=== PATIENT | female | born 1955 | race Caucasian/White ===

== ENCOUNTER 2017-06-11 23:13 | Observation (INO) ==
--- NOTE | 2017-06-11 23:32 | Emergency Department Note ---
Disposition Clinical Impression: Cellulitis, DM type 2 (diabetes mellitus, type 2), Hypertension Disposition: Admitted As Inpatient Condition: Good Referrals: Maikel Scott MD [Primary Care Provider] - Forms: ED Satisfaction Letter Time of Disposition: 23:46 (naila soria [facility]) Skin/Abscess/FB HPI Chief complaint: ED Skin/Abscess/Foreign Body Stated complaint: Redness and edema to bilat feet Time Seen by Provider: 06/11/17 23:20 Source: patient Mode of arrival: ambulatory Limitations: no limitations Nursing Notes Reviewed: Yes Vital Signs Reviewed: Yes HPI Narrative: Patient presents to emergency room is been having increasing swelling and edema lower extremities a home health aide came out today and noticed that the right lower extremity was red hot swollen to the knee patient said about a year ago she had similar presentation which ended up with her being hospitalized patient states that she has had a persistent cough dry hack E not staccato type but it addition she has had swelling and edema to the lower extremities redness to the right lower extremity patient now presents to the ER after being instructed by the family physician to come to the ER because of her prior history of cellulitis and peripheral edema patient states last time she had this she was hospitalized receive IV antibiotics and diuretics and resolved Pt Subjective Complaint: other (cellulitis and swelling in the legs) Onset (ago): day(s) Tetanus Up to Date: yes Location: LLE, RLE Severity: moderate Severity scale (1-10): 5 Quality: aching Consistency: constant, Worsening Improves with: other (legs elevated improves) Worsens with: other (legs down) Context: none Associated symptoms: Reports: malaise, arthralgias, myalgias. Denies: fever, chills, rigors, itching, nausea, cough, shortness of breath Treatments prior to arrival: none Home Medications Medication Instructions Recorded Confirmed Albuterol Sulfate [Albuterol 1 puff IH Q6HR PRN 06/08/15 06/11/17 Inhaler] Amitriptyline HCl 100 mg PO HS 06/08/15 06/11/17 Metformin [Glucophage] 500 mg PO BIDWM 06/08/15 06/11/17 Tiotropium [place] [Spiriva] 18 mcg IH DAILY 06/08/15 06/11/17 Metoprolol Tartrate [Lopressor] 100 mg PO BID 01/08/16 06/11/17 Allergies Allergy/AdvReac Type Severity Reaction Status Date / Time ciprofloxacin [From Cipro] AdvReac Vomiting Verified 05/28/17 18:16 All systems ED: reviewed and negative except as stated. Review of Systems: As Per HPI Constitutional: Reports: weakness. Denies: fever, chills Eyes: Denies: eye pain ENT ED: Denies: ear pain Cardiovascular: Denies: chest pain Respiratory: Denies: cough Gastrointestinal: Denies: abdominal pain Genitourinary: Denies: urgency, dysuria Musculoskeletal: Reports: other (Patient was swelling and redness). Denies: back pain Integumentary: Denies: rash, abrasion Neurological: Denies: headache Psychiatric: Denies: anxiety Endocrine: Denies: fatigue Hematological/Lymphatic: Denies: easy bleeding Allergic/Immunologic: Denies: facial swelling Past Medical History - Past Medical History Attestation: Yes The following information was validated with the patient. Source: patient, old records reviewed, nursing notes reviewed Medical history: Reports: COPD, diabetes, hypertension, migraine Surgical history: Reports: , cholecystectomy, hysterectomy Psychiatric history: Reports: anxiety, depression - Social History Smoking Status: Former smoker Smokeless Tobacco Status: No Alcohol use: Reports: none Drug use: Reports: none Physical Exam - General Limitations: no limitations General appearance: alert, in no apparent distress, anxious, obese, other ( dyspneic with activity) - Head Head exam: atraumatic, normocephalic, normal inspection - Eye Eye exam: Present: normal appearance, PERRL, EOMI - ENT ENT exam: normal exam, normal oropharynx, mucous membranes moist, normal external ear exam - Neck Neck exam: Present: normal inspection, full ROM, trachea midline - Chest Chest inspection: Present: normal inspection, symmetric chest wall rise - Respiratory Respiratory exam: Present: wheezes, prolonged expiratory phase - Cardiovascular Cardiovascular exam: Present: regular rate, normal rhythm, normal heart sounds - Abdominal Exam Abdominal exam: Present: soft, Non-Tender, normal bowel sounds. Absent: mass, pulsatile mass - Expanded Upper Extremity Exam Shoulder exam: Present: normal inspection, full ROM Arm exam: Present: normal inspection, full ROM Elbow exam: Present: normal inspection, full ROM Forearm/Wrist exam: Present: normal inspection, full ROM Hand exam: Present: normal inspection, full ROM Vascular exam: Normal: capillary refill, radial pulse - Expanded Lower Extremity Exam Hip/Pelvis exam: Present: normal inspection, full ROM Upper leg exam: Present: normal inspection, full ROM Knee exam: Present: normal inspection, full ROM Lower leg exam: Present: normal inspection, full ROM, swelling, erythema (Right lower extremity). Absent: Homans' sign Ankle exam: Present: normal inspection, full ROM, swelling, erythema Foot/toe exam: Present: normal inspection, full ROM, swelling, erythema Neurovascular/Tendon exam: Present: normal capillary refill, normal fine/light touch. Absent: motor deficit, sensory deficit, tendon deficit Gait: antalgic - Back Exam Back exam: Present: normal inspection, full ROM. Absent: muscle spasm - Neurological Exam Neurological exam: Present: alert, oriented X3, CN II-XII intact - Psychiatric Psychiatric exam: Present: normal affect, normal mood - Skin Skin exam: Present: warm, dry, intact, normal color Course Course Narrative: seen and examined patient is noted to have cellulitis of the lower extremities and significant edema to the knees bilaterally she has got a persistent cough workup was done for CHF she will be admitted services of Dr. Rodriguez for diuresis and antibiotics Vital Signs Temperature 97.8 F 06/11/17 23:15 Pulse Rate 104 06/11/17 23:15 Respiratory Rate 16 06/11/17 23:15 Blood Pressure 129/74 06/11/17 23:15 O2 Sat by Pulse Oximetry 99 06/11/17 23:15 Temperature 97.8 F 06/11/17 23:18 Pulse Rate 104 06/11/17 23:18 Respiratory Rate 16 06/11/17 23:18 Blood Pressure 129/74 06/11/17 23:18 O2 Sat by Pulse Oximetry 99 06/11/17 23:18 Oxygen Delivery Oxygen Delivery Room Air Skin/Abscess/Foreign Body - MDM Narrative Medical decision making narrative: edema - Differential Diagnosis Likely: cellulitis - Medical Records Medical records reviewed: Yes I reviewed the patient's medical records. - Lab Data Lab results reviewed: Yes I reviewed the patient's lab results. - Radiology Data Radiology results reviewed: Yes I reviewed the patient's radiology results. Critical Care Time Critical Care Time: No
[2017-06-11] MEDS ORDERED: Bumetanide 1 MG/4 ML VIAL IVP ONE (23:33)
[2017-06-11] MEDS ORDERED: Ampicillin/Sulbactam 3,000 MG in 0.9 % Sodium Chloride Mini Bag 100 ML IVPB ONE (23:33)
[2017-06-11] MEDS ORDERED: Ondansetron 4 MG/2 ML VIAL IVP ONE (23:53)
[2017-06-11 23:58] LABS: Basophils % 0.5 %; Eosinophils # 0.5 K/mcL (0.0-0.6); Eosinophils % 6.1 %; Hematocrit 45.5 % (35.3-44.9); Hemoglobin 14.9 g/dL (11.5-15.4); Immature Granulocytes % 0.3 % (0-4); Lymphocytes # 2.2 K/mcL (0.6-4.6); Mean Corpuscular HGB Conc 32.7 g/dL (31.6-35.5); Mean Corpuscular Hemoglobin 30.7 pg (28.0-33.3); Mean Corpuscular Volume 93.6 fL (83.0-100.0); Mean Platelet Volume 12.2 fL (9.4-12.4); Monocytes # 0.6 K/mcL (0.0-1.3); Monocytes % 7.3 %; Neutrophils # 4.5 K/mcL (1.6-8.9); Platelet Count 181 K/mcL (140-400); Red Blood Count 4.86 M/mcL (3.82-4.97); Red Cell Distribution Width 14.3 % (11.5-14.5); Segmented Neutrophils % 57.8 %
[2017-06-12 00:04] LABS: INR 1.1; Prothrombin Time 11.8 Seconds (9.4-12.1)
[2017-06-12 00:06] LABS: Activated Partial Thrombo Time 32.3 Seconds (26.0-36.0)
[2017-06-12 00:13] LABS: BUN/Creatinine Ratio 6 (6-26); Blood Urea Nitrogen 6 mg/dL (7-20); Calcium 9.5 mg/dL (8.6-10.8); Carbon Dioxide 27 mEq/L (19-29); Chloride 101 mEq/L (98-109); Glucose 92 mg/dL (70-99); Osmolality,Calculated 291 (280-300); Potassium 3.8 mEq/L (3.5-4.5); Sodium 142 mEq/L (136-145); eGFR For African Americans > 60 (> 60); eGFR For Non-African Americans 56 (> 60)
[2017-06-12] MEDS ORDERED: Dextrose Gel 15 GM PO PRN ×2 (00:21)
[2017-06-12] MEDS ORDERED: *HR* Dextrose 50 % in Water (Syg) 50 ML SYRINGE IVP PRN (00:21)
[2017-06-12] MEDS ORDERED: Naloxone 0.4 MG/ML INJ IVP PRN (00:21)
[2017-06-12] MEDS ORDERED: D5% in Water 1,000 ML IVC PRN (00:21)
[2017-06-12] MEDS ORDERED: *HR* OxyCODONE/APAP 5/325 TABLET PO PRN (04:56)
[2017-06-12] MEDS ORDERED: *HR* Metformin 500 MG TABLET PO SCH (08:00)
[2017-06-12] MEDS ORDERED: Bumetanide 1 MG/4 ML VIAL IVP SCH ×2 (08:00)
[2017-06-12] MEDS ORDERED: Tiotropium 18 MCG inhalation IH SCH (09:00)
[2017-06-12] MEDS: Insulin LISPRO 300 UNITS/3 ML VIAL SQ SCH ×2 (09:40→12:14)
[2017-06-12 10:52] VITALS: BP 130/85
--- NOTE | 2017-06-12 14:59 | Internal Med History&Physical ---
Date of Encounter: 06/12/17 Time of Encounter: 14:30 Assessment and Plan (1) Cellulitis Current visit: Yes Status: Acute Suspect primarily venous stasis rather than cellulitis. She was started on Unasyn in the emergency room. She wishes to be discharged home now. Will give 2 days of Septra DS because of possible mild cellulitis and dysuria complaints Qualifiers: Site of cellulitis: extremity Site of cellulitis of extremity: lower extremity Laterality: unspecified laterality Qualified Code(s): L03.119 - Cellulitis of unspecified part of limb (2) Edema Current visit: Yes Status: Acute Will start low dose Bumex. She has been on this before but does not recall the reason it was stopped. Qualifiers: Edema type: unspecified Qualified Code(s): R60.9 - Edema, unspecified Internal Medicine - H&P: HPI Chief complaint: Leg swelling and redness Admitted From: Home Plans for Post Hospital Care: Home History of present illness: Ms. Yin is a 61 year old female who came to emergency room complaining of bilateral lower leg swelling and redness onset previous day. She was seen by her home health nurse the morning of admission. The patient's daughter was adamant she be brought to emergency room for evaluation and treatment. In the emergency room she was felt to have cellulitis and was admitted to [facility] floor for ongoing care needs. She states she feels improved now and at her baseline. She wishes to be discharged home. Past Med Surg Social Fam HX - Past Medical History Medical history: COPD, diabetes, hypertension, migraine Psychiatric history: anxiety, depression - Past Surgical History Surgical History: , cholecystectomy, hysterectomy - Social History Smoking Status: Former smoker Smokeless Tobacco Status: No Alcohol use: none Drug use: none - Family History Mother Living Status: Hx Family Cardiac Disorders: Yes (MYOCARDIAL INFARCTION.) Internal Medicine - H&P: Meds Albuterol Sulfate [Albuterol Inhaler] 1 puff IH Q6HR PRN 06/08/15 [History] Amitriptyline HCl 100 mg PO HS 06/08/15 [History] Metformin [Glucophage] 500 mg PO BIDWM 06/08/15 [History] Tiotropium [place] [Spiriva] 18 mcg IH DAILY 06/08/15 [History] Metoprolol Tartrate [Lopressor] 100 mg PO BID 01/08/16 [History] Allergies ciprofloxacin [From Cipro] Adverse Reaction (Verified 05/28/17 18:16) Vomiting All Systems PM: A 10-system review of systems was performed and is negative for pertinent findings except as documented above in the HPI. Review of systems: Gen.: Her weight has been stable at approximately 128 kg since the June 2015 [facility] hospitalization. Cardiovascular: She denies hypertension, myocardial infarction, heart failure, angina DVT, or pulmonary embolus. Respiratory: She smoked from age [age] a total of 29 years up to one and a half packs per day. She had PFTs approximately 2005 and was told she had COPD. She does not use home oxygen. She is a diagnosis of MONTSERRAT and uses CPAP at bedtime. GI: she was hospitalized at [facility] May 2015 with GI bleed. She had an EGD which showed superficial gastric ulcer without evidence of active bleeding. Biopsies were taken. There was no significant source of bleeding identified. Her Mobic was discontinued. She denies disorder with her liver or exocrine pancreas. She is status post cholecystectomy. : She has had urinary tract infections in the past. She denies other kidney or bladder disorders. Neurologic: She has history of "epilepsy" but was later told that it was an erroneous diagnosis. She was told she actually had migraine type headaches. She denies large distribution strokes or seizures. Endocrine: She was diagnosed with DM 2 approximately 2008. She denies thyroid disease or hyperlipidemia. She had low vitamin D level documented at 18 on . Hematology oncology: She denies blood disorders or cancers. She had anemia after GI bleed in 2014 but that has resolved. Psychiatric: She has history of anxiety and depression. - Constitutional Vitals: Temp Pulse Resp BP Pulse Ox 98.6 F 94 18 130/85 93 06/12/17 10:51 06/12/17 10:51 06/12/17 10:51 06/12/17 10:51 06/12/17 10:51 Exam: Gen.: She is well-developed obese female sitting in a chair at bedside who appears in no acute distress HEENT: Head is atraumatic and normocephalic. Eyes: EOMI. There is no scleral icterus. Mouth: Mucosa is moist. Neck: Supple and nontender. There is no thyromegaly or adenopathy noted. Heart: Regular without murmurs gallops or ectopics Lungs: No wheezes or crackles are heard. Abdomen: She has a large abdomen. There is a umbilical hernia approximately 5 cm diameter which is reducible. Exam is limited because she is in a seated position. Extremities: She has 1-2+ edema of the dorsum of the feet bilaterally. There is trace edema of the lower anterior shins bilaterally. There is erythema of the lower legs bilaterally, more on the right than the left. The erythema has indistinct margins. Neurologic: Mental status: She is talkative and a good historian. Cranial nerves: Smile is symmetric. Forehead wrinkles bilaterally. Tongue protrudes midline. EOMI. Motor: There is no pronator drift. Cerebellar: Fair to nose is intact bilaterally. Skin: Warm and dry Internal Med - H&P Results - Labs CBC & Chem 7: 06/11/17 23:52 06/11/17 23:52
--- NOTE | 2017-06-12 15:16 | Discharge Summary ---
Date of Encounter: 06/12/17 Time of Encounter: 14:30 - Discharge Diagnosis (1) Cellulitis Priority: Primary Status: Acute Qualifiers: Site of cellulitis: extremity Site of cellulitis of extremity: lower extremity Laterality: unspecified laterality Qualified Code(s): L03.119 - Cellulitis of unspecified part of limb (2) Edema Priority: Secondary Status: Acute Qualifiers: Edema type: unspecified Qualified Code(s): R60.9 - Edema, unspecified - Discharge Medications Prescriptions: Bumetanide 0.5 mg PO DAILY #30 tablet Potassium Chloride 10 meq PO DAILY #30 tab.er.prt Sulfamethoxazole/Trimeth DS [Bactrim DS] 1 each PO BID #4 tablet Home Medications: Albuterol Sulfate [Albuterol Inhaler] 1 puff IH Q6HR PRN 06/08/15 [History] Amitriptyline HCl 100 mg PO HS 06/08/15 [History] Metformin [Glucophage] 500 mg PO BIDWM 06/08/15 [History] Tiotropium [place] [Spiriva] 18 mcg IH DAILY 06/08/15 [History] Metoprolol Tartrate [Lopressor] 100 mg PO BID 01/08/16 [History] Bumetanide 0.5 mg PO DAILY #30 tablet 06/12/17 [Rx] Potassium Chloride 10 meq PO DAILY #30 tab.er.prt 06/12/17 [Rx] Sulfamethoxazole/Trimeth DS [Bactrim DS] 1 each PO BID #4 tablet 06/12/17 [Rx] Allergies/Adverse Reactions: Allergies ciprofloxacin [From Cipro] Adverse Reaction (Verified 05/28/17 18:16) Vomiting Date of admission: 06/11/17 23:54 Primary care physician: Maikel Scott MD - Patient Status Disposition: Home, Self-Care Condition: Good Overall status at discharge: patient is progressing back to baseline - Discharge Instructions Follow Up With: Maikel Scott MD [Primary Care Provider] - 1 week - Diet and Activity Activity: resume usual activities as tolerated Diet: advance to your usual diet Hospital course: Ms. Yin is a 61 year old female who came to emergency room complaining of bilateral lower leg swelling and redness onset previous day. She was seen by her home health nurse the morning of admission. The patient's daughter was adamant she be brought to emergency room for evaluation and treatment. In the emergency room she was felt to have cellulitis and was admitted to [facility] for ongoing care needs. Initial orders written by the emergency room physician. I saw her on June 12 and performed the history physical and discharge. She was started on IV Unasyn through the emergency room. When I saw her she stated the leg redness had improved. I felt she likely had venous stasis rather than significant cellulitis present. I encouraged her strongly to keep her feet elevated. I restarted Bumex as she had been on 2 years previously. She will also be given a low dose KCl supplement. She wished to be discharged home. Her vital signs remained stable and I felt it was reasonable for her to be discharged and follow with her PCP Dr. Scott within 1 week. She will be given 2 days of Septra DS for possible cellulitis and for complaints of dysuria. - Time Spent with Patient Total time spent providing and/or coordinating discharge services: - Constitutional Vitals: Temp Pulse Resp BP Pulse Ox 98.6 F 94 18 130/85 93 06/12/17 10:51 06/12/17 10:51 06/12/17 10:51 06/12/17 10:51 06/12/17 10:51
== END 2017-06-12 16:34 | disposition home health service (06) ==
LOC: EMEROOPIK 23:13 → INPPIK 23:13
PROVIDERS: ADMIT Internal Medicine; ATTEND Internal Medicine